=== PATIENT | male | born 1995 | race Caucasian/White ===

== ENCOUNTER 2020-05-13 12:54 | Emergency (ER) | payer OTHER, SELFPAY ==
--- NOTE | ~2020-05-13 | XR_ITS ---
EXAMINATION: XR chest 2V 05/13/2020 13:32 INDICATION: Chest pain and shortness of breath PROCEDURE: PA and lateral views of the chest COMPARISON: 04/25/2017 FINDINGS: The lungs are clear. The cardiomediastinal silhouette is within normal limits. There are no pleural effusions. There is no pneumothorax suspected. IMPRESSION: 1: NO ACUTE CARDIOPULMONARY DISEASE. Reviewed, dictated and finalized at location B.
[2020-05-13 12:58] VITALS: BP 129/72; PULSE 86; RESP 16; TEMP 37.4; O2SAT 98
[2020-05-13 13:04] VITALS: PULSE 98
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
--- NOTE | 2020-05-13 13:14 | ECG_ITS ---
Measurements Intervals [place] Rate: 106 P: 74 MT: 138 QRS: 81 QRSD: 98 T: 35 QT: 306 QTc: 408 Interpretive Statements SINUS TACHYCARDIA BASELINE ARTIFACT- I, II, III ABNORMAL ECG Electronically Signed On 05-13-2020 14:04:10 CDT by Berto Oneil D.O.
[2020-05-13] MEDS: KETOROLAC 30 MG/ML VIAL (*BKC) IV PUSH (13:15)
[2020-05-13 13:22] LABS: Basophils Percent Auto 0.7 % (0.2-1.2); Eosinophils Percent Auto 0.5 % (0-4.4); Hematocrit 41.9 % (42.0-52.0); Hemoglobin 14.5 g/dL (14.0-18.0); Immature Granulocyte Absolute 0.02 K/mm3 (0.00-0.031); Immature Granulocyte Percent A 0.4 % (0-0.5); Lymphocytes Absolute Auto 1.57 K/mm3 (0.9-3.2); Lymphocytes Percent Auto 28.8 % (18.3-44.2); Mean Corpuscular HGB Conc 34.6 g/dl (32-36); Mean Corpuscular Hemoglobin 31.5 pg (26-34); Mean Corpuscular Volume 90.9 fl (80-100); Mean Platelet Volume 9.7 fl (7.4-10.4); Monocytes Absolute Auto 0.5 K/mm3 (0.1-0.6); Neutrophils Absolute Auto 3.3 K/mm3 (1.3-6.7); Neutrophils Percent Auto 60.6 % (45.5-73.1); Platelet Count Result 304 k/mm3 (150-375); Red Blood Count 4.61 M/mm3 (4.6-6.20); Red Cell Distribution Width 12.6 % (11.5-14.5); White Blood Count 5.5 K/mm3 (4.5-10.0)
[2020-05-13 13:30] LABS: INR 1.1; Partial Thromboplastin Time 27.7 SECONDS (22.3-36.8)
[2020-05-13 13:34] LABS: D Dimer 0.27 ug/mL (<0.48)
[2020-05-13] MEDS: ALBUTEROL SULFATE NEB 2.5 MG/0.5 ML INH 5 MG INHALATION (13:34)
[2020-05-13 13:48] LABS: Blood Urea Nitrogen 11 mg/dL (9-20); Calcium 9.4 mg/dL (8.4-10.2); Carbon Dioxide 24 mmol/L (22-30); Chloride 106 mmol/L (98-107); Glucose 121 mg/dL (75-110); Potassium 3.7 mmol/L (3.4-5.0); Sodium 139 mmol/L (137-145)
[2020-05-13 13:56] LABS: Troponin I < 0.012 ng/mL (0.000-0.034)
[2020-05-13 14:45] LABS: Estimated CRCL calculation 126 ml/min; Estimated Glomerular Filt Rate > 60
[2020-05-13 14:55] VITALS: BP 128/80; PULSE 66; RESP 20; TEMP 36.7; O2SAT 99
== END 2020-05-13 14:56 | disposition home or self-care (01) ==
PROVIDERS: Emergency Provider Emergency Medicine
DX: R07.9 Chest pain, unspecified (principal); W39.XXXA Discharge of firework, initial encounter
CPT/HCPCS: 36415; 71046; 80048; 84484; 85025; 85380; 85610; 85730; 93005; 94640; 96374; 99284; J1885

== ENCOUNTER 2020-09-09 21:16 | Emergency (ER) | payer OTHER, SELFPAY ==
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
[2020-09-09 21:25] VITALS: BP 133/71; PULSE 84; RESP 14; TEMP 36.7; O2SAT 100
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
[2020-09-09] MEDS: KETOROLAC (*BKC) 60 MG/2 ML VIAL IM (22:29)
[2020-09-09 23:20] VITALS: BP 130/80; PULSE 88; RESP 17; O2SAT 99
== END 2020-09-09 23:20 | disposition home or self-care (01) ==
PROVIDERS: Emergency Provider Emergency Medicine
DX: S16.1XXA Strain of muscle, fascia and tendon at neck level, initial encounter (principal); V43.52XA Car driver injured in collision with other type car in traffic accident, initial encounter
CPT/HCPCS: 72125; 96372; 99284; J1885; L0140

== ENCOUNTER 2020-09-18 15:36 | Emergency (ER) | payer OTHER, SELFPAY ==
--- NOTE | ~2020-09-18 | XR_ITS ---
EXAMINATION: XR abdomen/kub 1V DATE: 09/18/2020 16:27 INDICATION: Nephrolithiasis presenting with right flank pain TECHNIQUE: A supine view of the abdomen on 2 radiographs was obtained. COMPARISON: CT and KUB dated 09/03/2017 FINDINGS: Moderate amount of stool scattered throughout the colon. No dilated gas-filled bowel to suggest obstr uction. No evident urolithiasis. Visualized portions of the lung bases are normal with no pleural eff usion. Bones are unremarkable. IMPRESSION: 1. Moderate amount of colonic stool. Otherwise unremarkable study with no urolithiasis. Reviewed, dictated and finalized at location H. OR UI UX DESIGNER IMPRESSION: 1. Moderate amount of colonic stool. Otherwise unremarkable study with no uroli thiasis.
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
[2020-09-18 16:02] VITALS: BP 139/71; PULSE 102; RESP 16; TEMP 37.4; O2SAT 100
== END 2020-09-18 16:44 | disposition home or self-care (01) ==
PROVIDERS: Emergency Provider Nurse Practitioner
DX: R10.9 Unspecified abdominal pain (principal); J45.909 Unspecified asthma, uncomplicated
CPT/HCPCS: 74018; 81003; 99213; G0463